=== PATIENT | female | born 1980 | race Asian ===

== ENCOUNTER 2018-08-26 12:59 | Emergency (ER) | payer OTHER ==
[2018-08-26] MEDS: IPRATROPIUM (NEB) 0.5 MG/2.5 ML AMP INH (14:06)
[2018-08-26] MEDS: ALBUTEROL 0.5% (NEB) 2.5 MG/0.5 ML AMP INH (14:06)
[2018-08-26] MEDS: predniSONE 20 MG TAB PO (14:10)
[2018-08-26] MEDS: IBUPROFEN 600 MG TAB PO (14:10)
== END 2018-08-26 15:11 | disposition home or self-care (01) ==
LOC: FTE 12:59
DX: J06.9 Acute upper respiratory infection, unspecified (principal)
CPT/HCPCS: 71045; 87880; 94644; 99284-25